=== PATIENT | male | born 1995 | race Two or more races ===

== ENCOUNTER 2022-04-08 10:55 | Emergency (ER) | payer OTHER ==
[~2022-04-08] VITALS: Ht 162.6 cm; Wt 68.0 kg
--- NOTE | 2022-04-08 11:10 | NUR ---
GIOVANNY RA860 "Took psych meds now feel weak/dizzy. Wants psych evaluation" Pt states "I want to go psych hospital took psychmeds to get high and meth". PLACED ON BED, AWAKE ALERT- CONFUSED, DENIES SI OR HURT OTHERS. WILL CONTINUE TO MONITOR.
[2022-04-08 11:25] LABS: BASOPHILS % (AUTO) 0.5 % (0.0-2.0); EOSINOPHILS % (AUTO) 2.6 % (0.0-6.0); HEMATOCRIT 46 % (39-51); HEMOGLOBIN 15.2 g/dL (13.5-17.5); LYMPHOCYTES # (AUTO) 2.2 K/uL (0.8-4.8); LYMPHOCYTES % (AUTO) 25.6 % (20.0-44.0); MEAN CORPUSCULAR HGB CONC 33 g/dl (31.0-36.0); MEAN CORPUSCULAR VOLUME 84 fL (80-96); MONOCYTES # (AUTO) 0.8 K/uL (0.1-1.30); NEUTROPHILS # (AUTO) 5.4 K/uL (1.8-8.9); NEUTROPHILS % (AUTO) 62.3 % (43.0-81.0); PLATELET COUNT (AUTO) 280 K/uL (150-450); RED BLOOD CELL COUNT(AUTO) 5.46 MIL/uL (4.5-6.0); WHITE BLOOD COUNT (AUTO) 8.7 K/uL (4.3-11.0)
--- NOTE | 2022-04-08 11:25 | NUR ---
BONDED STRUCTURES REPAIRER AT BEDSIDE
[2022-04-08] MEDS ORDERED: OLANZAPINE 10 MG VIAL IM ONE ×2 (11:30→11:39)
[2022-04-08 11:40] LABS: ALANINE AMINOTRANSFERASE 30 U/L (12-78); ALBUMIN 4.1 g/dL (3.4-5.0); ALCOHOL, BLOOD < 3 mg/dL (0-0); ALKALINE PHOSPHATASE 90 U/L (46-116); ASPARTATE AMINOTRANSFERASE 15 U/L (15-37); BILIRUBIN,DIRECT 0.1 mg/dL (0.0-0.2); BILIRUBIN,TOTAL 0.3 mg/dL (0.2-1.0); CALCIUM, SERUM 9.2 mg/dL (8.5-10.1); CARBON DIOXIDE 23 mmol/L (21-32); CHLORIDE 106 mmol/L (98-107); CREATININE 0.9 mg/dL (0.6-1.3); GLUCOSE 109 mg/dL (74-106); POTASSIUM 3.7 mmol/L (3.5-5.1); SODIUM SERUM 141 mmol/L (136-145); TOTAL PROTEIN, SERUM 7.5 g/dL (6.4-8.2); UREA NITROGEN, BLOOD 13 mg/dL (7-18)
[2022-04-08 11:45] LABS: ACETAMINOPHEN < 10 ug/ml (10-30)
--- NOTE | 2022-04-08 13:05 | NUR ---
URINE SAMPLE SENT TO LAB
[2022-04-08 13:43] LABS: BILIRUBIN,URINE NEGATIVE (NEGATIVE); COLOR,URINE YELLOW (YELLOW); LEUKOCYTE ESTERASE ,URINE NEGATIVE (NEGATIVE); NITRITE, URINE NEGATIVE (NEGATIVE); PH,URINE 6.5 (5.0-8.0); PROTEIN,URINE NEGATIVE (NEGATIVE); UGLUCOSE NEGATIVE (NEGATIVE); UROBILINOGEN,URINE 0.2 EU/dL (0.2)
--- NOTE | 2022-04-08 15:50 | NUR ---
SS Consult: SS consult requested for homelessness. The pt. is a 27-year-old male patient who came in for requesting a psych consult. Upon SS consult, the pt. is Alert & Oriented x 4 and makes poo eye contact. Pt. covered most of his face with his shirt. The pt. appears unkempt and mal odorous with depressed mood & affect. Pt.'s speech is WNL. Pt. remained calm & cooperative throughout interview. Pt. states he has SI and denies HI and denies hallucinations. Pt. denies any previous diagnosis of mental illness. GIDEON explored pt.'s living situation. Patient states he is currently living at [[address] [facility] [address]; [phone]]. SW explored pt.'s drug & ETOH use. Pt. states he uses Meth amphetamine "often. Pt. also tested positive for weed and some alcohol. SW provided psychoeducation on drug & alcohol dependence and offered referrals and pt. refused them. Pt. stated independent with ambulation and all his ADL's. GIDEON explored pt.'s support system. Pt. states his friends are his support system. Plan: GIDEON faxed clinicals to [place] TEL:[phone] fax:[phone] for voluntary psychiatric treatment at [facility] [[address] [place], [place] [id number] FAX:[phone]]. GIDEON provide pt. with the following addiction resources and pt. refused them: ADDICTION RESOURCES For Drugs and Alcohol [facility] sober living Referrals For Rehabilitation once sober Address:[address] [place] [id number] [facility] Rehabilitation Program [address] [place] [address] Detox/residential [facility] Substance Abuse Helpline ([facility]) Outpatient, residential treatment, recovery support for youth/adults [facility] www.[facility].ezzai - how to arabia [facility] Teen programs for drug/alcohol education and support Shivam Garcia [place]. Program for adults, sliding scale provides support and education [employer] www.LightSail Energyation.org [place]; Detox/residential treatment programs; transition to sober living [facility] www.cri-help.org [place]; Outpatient and residential treatment programs; transition to sober living [facility] TEL: [phone] [facility] [place]; Outpatient education and supportive programs for teens and adults [place] [facility] www.oasiswomensrecmedicine lodge memorial hospitaly.org [facility]; Residential treatment and work program for females only Ravi [place] www.[facility].Everyone Counts [place]: Outpatient/residential treatment program for teens and young adults [facility].org [place] Detox, inpatient, outpatient for adults and youth [facility], [facility]. [employer] [place]; Outpatient programs and referrals to community residential programs. Alcoholics Anonymous -SFV information and meeting and scheduleswww.aa-intergroup.org Ok-Uejm-Alkpvwa https://al-anon.org/ [place] support groups for family of alcoholics. Marijuana Anonymous www.madistrict6.org -SFV listing of meetings Narcotics Anonymous www.na.org SOBER LIVING RESOURCES [facility] www.soberhousing.net A non-profit agency that provides resources to recovery and sober living homes throughout [place], [place], [facility] Men's Sober Living Homes: A Work in ProgressJohn Austyn Hanna [facility], [facility] Women's Sober Living Homes: [facility] x [address] [place], [place] [facility] Coed Sober Living Homes: [facility] Counseling--Outpatient [facility] [address] [facility] [place] [address] (Specializes in in-depth psychotherapy for emotional distress: anxiety, depression, interpersonal conflicts, life transitions, childhood abuse) [facility] [address] [place] [address] (Assist with solving problem marital difficulties, separation & divorce, aging parents, & grief, chronic & terminal illness) [facility] [address] [place] [address] (Deal with loss & grief, anxiety, marital difficulties) Homebound/Mental Health Services [address], [address] [place] [address] (Provide in-home mental services to people who are incapable of leaving their homes) [facility] Needs of the Elderly Senior Service/Resource Center [address] [place] [address] [facility] [address] [place] [address] Mental Health Services [facility] [address] [place] [address] Services: Outpatient therapy for children, teens, young adults, adults, older adults, and families; Psychiatric services, medication support Psychiatric Outpatient Services [facility] Partial Hospitalization and Intensive Outpatient Program (Managed Care and [place] Only)[address] [facility] [phone] [facility] Partial Hospitalization and Outpatient Kdtgnon[address] [facility]. [address] [place], [place] [phone] [facility] Mental [facility] [id number] [place] [phone] [facility] [place] Partial Hospitalization and Outpatient [id number] CHELSEY [phone] Crisis and Hotline Telephone Numbers 24-Hour service unless stated [place] Crisis Hotlines: [facility] Mental Health/Crisis Line........978.437.6574 Suicide Prevention Center (24 Hours).......[phone] Suicide Prevention Crisis Center.......[phone] (24 Hours) Assaults Against Women Hotline.........133.512.1871 (24 Hours -- [facility]) Women and Children Crisis Longterm...........218.912.4786 (24 Hours) Child Abuse Hotline............616.571.4597 [facility] (24 Hours)..........[phone] Alcoholics Anonymous (24 Hours)..........[phone] Cocaine Anonymous (24 Hours)............[phone] Narcotics Anonymous (24 Hours)..........[phone] [address] [facility] [address], [place] [address]
--- NOTE | 2022-04-08 18:27 | NUR ---
Patient discharged to home in stable condition. Written and verbal after care instructions given. Patient verbalizes understanding of instruction.
[2022-04-08 18:29] VITALS: BP 125/73
== END 2022-04-08 18:27 | disposition home or self-care (01) ==
LOC: ER 11:20
DX: F15.129 Other stimulant abuse with intoxication, unspecified (principal); R53.1 Weakness; Z20.822 Contact with and (suspected) exposure to COVID-19; F99 Mental disorder, not otherwise specified
CPT/HCPCS: 99285; 96372; 85025; 80048; 80076; 81003; 36415; 87426; 80143; 80320; 80307; J3490; C9803; G0480

== ENCOUNTER 2025-04-11 20:13 | Emergency (ER) | payer OTHER ==
[~2025-04-11] VITALS: Ht 167.6 cm; Wt 78.9 kg
[2025-04-11 20:20] VITALS: BP 130/81; TEMP 98.2; O2SAT 99
[2025-04-11] MEDS ORDERED: NALO4SPR BNOSTRILS (20:21)
== END 2025-04-11 21:00 | disposition home or self-care (01) ==
LOC: ER 20:17
DX: F15.129 Other stimulant abuse with intoxication, unspecified (principal); F31.9 Bipolar disorder, unspecified; Z88.0 Allergy status to penicillin